=== PATIENT | male | born 1955 | race Caucasian/White ===

== ENCOUNTER 2025-07-05 12:21 | Emergency (ER) | payer OTHER, MEDICARE, MEDICAID ==
[~2025-07-05] VITALS: Ht 165.1 cm; Wt 73.0 kg
[2025-07-05 12:38] VITALS: O2SAT 98
[2025-07-05 16:31] LABS: BASOPHILS % 0.3 % (0.0-2.0); EOSINOPHILS % 0.2 % (0.0-5.0); HEMATOCRIT. 45.4 % (42.0-52.0); HEMOGLOBIN. 15.2 g/dL (14.0-18.0); LYMPHOCYTES % 18.6 % (20.0-50.0); MEAN PLATELET VOLUME 9.6 fl (7.4-10.4); MONOCYTES % 5.7 % (2.0-8.0); NEUTROPHILS % 75.2 % (40.0-76.0); PLATELET 169 x1000/uL (130-400); RED BLOOD CELL COUNT 5.02 mill/uL (4.7-6.1); RED CELL DISTRIBUTION WIDTH 13.0 % (11.6-14.6)
[2025-07-05 16:46] LABS: CREATININE 0.9 mg/dL (0.6-1.3); UREA NITROGEN BLOOD 10 mg/dL (9-23)
[2025-07-05 16:48] LABS: TROPONIN I HIGH SENSITIVITY < 4 ng/L (3.0-53)
[2025-07-05] MEDS ORDERED: LIDO700A30 TP (17:32)
[2025-07-05 18:11] VITALS: BP 146/77; PULSE 77; RESP 16; TEMP 37.1; O2SAT 97
== END 2025-07-05 18:19 | disposition home or self-care (01) ==
LOC: ER 12:21
DX: R07.89 Other chest pain (principal); E11.9 Type 2 diabetes mellitus without complications; I10 Essential (primary) hypertension; V49.9XXA Car occupant (driver) (passenger) injured in unspecified traffic accident, initial encounter; Y92.410 Unspecified street and highway as the place of occurrence of the external cause; Y93.89 Activity, other specified; Y99.8 Other external cause status
CPT/HCPCS: 36415; 71111; 80048; 84484; 85025; 93005; 99285